=== PATIENT | male | born 1965 | race African-American/Black ===

== ENCOUNTER 2023-08-15 21:40 | Emergency (ER) | payer MEDICAID, OTHER ==
[~2023-08-15] VITALS: Ht 175.3 cm; Wt 69.2 kg
[2023-08-16] MEDS ORDERED: LISI10TA22 PO (05:49)
[2023-08-16] MEDS ORDERED: CLONI1TA PO (05:49)
[2023-08-16 05:54] VITALS: BP 176/67
[2023-08-16] MEDS: cloNIDine 0.1MG TABLET PO ONE (05:54)
[2023-08-16 06:35] VITALS: BP 164/88; TEMP 98.8; O2SAT 98
== END 2023-08-16 06:37 | disposition home or self-care (01) ==
LOC: M ED 21:40
DX: I10 Essential (primary) hypertension (principal); Z76.0 Encounter for issue of repeat prescription; F17.200 Nicotine dependence, unspecified, uncomplicated

== ENCOUNTER 2024-05-14 15:44 | Emergency (ER) | payer OTHER ==
[~2024-05-14] VITALS: Ht 175.3 cm; Wt 74.0 kg
[~2024-05-14 15:44] MED LIST: CLONI1TA PO; LISI10TA22 PO
[2024-05-14 15:46] VITALS: TEMP 98.5
[2024-05-14] MEDS: cloNIDine 0.1MG TABLET PO ONE (20:35)
[2024-05-14] MEDS ORDERED: LISI10TA22 PO (20:40)
[2024-05-14] MEDS ORDERED: MM S100C PO (20:40)
[2024-05-14] MEDS ORDERED: HYDR26CR TOP (20:40)
[2024-05-14] MEDS ORDERED: CLONI1TA PO (20:40)
[2024-05-14] MEDS ORDERED: DEBR6.5S4 OTIC (20:40)
[2024-05-14 21:28] VITALS: O2SAT 98
[2024-05-14 22:10] VITALS: BP 170/96
[2024-05-14] MEDS ORDERED: LISI20TA33 PO (22:30)
== END 2024-05-14 22:38 | disposition home or self-care (01) ==
LOC: M ED 15:44
DX: Z76.0 Encounter for issue of repeat prescription (principal); I10 Essential (primary) hypertension; F17.200 Nicotine dependence, unspecified, uncomplicated; F19.10 Other psychoactive substance abuse, uncomplicated; F10.10 Alcohol abuse, uncomplicated; Z79.899 Other long term (current) drug therapy

== ENCOUNTER 2024-05-16 23:11 | Emergency (ER) | payer OTHER ==
[~2024-05-16] VITALS: Ht 175.3 cm; Wt 70.5 kg
[~2024-05-16 23:11] MED LIST changes: +DEBR6.5S4 OTIC; +HYDR26CR TOP; +LISI20TA33 PO; +MM S100C PO
[2024-05-16 23:19] VITALS: TEMP 97.3
[2024-05-17 03:11] VITALS: O2SAT 98
[2024-05-17 05:05] VITALS: BP 138/74
== END 2024-05-17 05:30 | disposition home or self-care (01) ==
LOC: EDBD 23:11 → M ED 23:11
DX: F10.129 Alcohol abuse with intoxication, unspecified (principal); F14.10 Cocaine abuse, uncomplicated; I10 Essential (primary) hypertension; E11.9 Type 2 diabetes mellitus without complications; F17.200 Nicotine dependence, unspecified, uncomplicated; F19.10 Other psychoactive substance abuse, uncomplicated; Z79.84 Long term (current) use of oral hypoglycemic drugs; Z79.899 Other long term (current) drug therapy